=== PATIENT | male | born 1950 ===

== ENCOUNTER 2017-10-01 17:19 | Emergency (ER) | payer OTHER ==
[2017-10-01 17:25] VITALS: O2SAT 95
[2017-10-01] MEDS ORDERED: Epinephrine /Lidocaine HCL 1:100,000/2% 30 ml INJ STA (18:16)
[2017-10-01] MEDS ORDERED: Tetanus/Diphtheria Toxoids 0.5 ml Syringe IM ONE ×2 (18:18→18:30)
--- NOTE | 2017-10-01 18:45 | C.PDOC ---
History Of Present Illness 67 y/o male presents to the ED for evaluation of a laceration to occiput, sustained today. Patient states he slipped and fell while working. He denies LOC. Otherwise patient denies any nausea, vomiting, dizziness, visual changes, slurred speech, chest pain, SOB, or other complaints. - HPI Time Seen by Provider: 10/01/17 18:13 Chief Complaint (Nursing): Trauma History Per: Patient History/Exam Limitations: no limitations Injury Occurred (Timing): Just Before Arrival Past Medical History Reviewed: Historical Data, Nursing Documentation, Vital Signs Vital Signs: Last Vital Signs Temp 99.1 F 10/01/17 17:21 Pulse 104 H 10/01/17 17:21 Resp 18 10/01/17 17:21 BP 187/101 H 10/01/17 17:21 Pulse Ox 95 10/01/17 18:54 - Medical History PMH: HTN Family History: States: No Known Family Hx - Social History Hx Alcohol Use: No Hx Substance Use: No - Immunization History Hx Tetanus Toxoid Vaccination: No Hx Influenza Vaccination: No Hx Pneumococcal Vaccination: No Review Of Systems Eyes: Negative for: Vision Change Cardiovascular: Negative for: Chest Pain Respiratory: Negative for: Shortness of Breath Gastrointestinal: Negative for: Nausea, Vomiting, Abdominal Pain Skin: Positive for: Lesions (to head) Neurological: Negative for: Weakness, Numbness, Incoordination, Change in Speech , Confusion, Altered Mental Status, Dizziness Physical Exam - Physical Exam Appears: Non-toxic, No Acute Distress Skin: Warm, Dry Head: Normacephalic, Laceration (5 cm inaggregate stellate wound to the occiput ) Eye(s): bilateral: Normal Inspection, PERRL, EOMI Ear(s): Bilateral: Normal Oral Mucosa: Moist Neck: Normal ROM, No Midline Cervical Tenderness, No Paracervical Tenderness, Supple Chest: Symmetrical Cardiovascular: Rhythm Regular Respiratory: Normal Breath Sounds, No Rales, No Rhonchi, No Wheezing Gastrointestinal/Abdominal: Soft, No Tenderness Extremity: Bilateral: Atraumatic, Normal Color And Temperature, Normal ROM Neurological/Psych: Oriented x3, Normal Speech, Normal Cranial Nerves, Normal Motor, Normal Sensation, Other (No focal deficits) ED Course And Treatment O2 Sat by Pulse Oximetry: 95 (RA) Pulse Ox Interpretation: Normal Laceration - Laceration Repair Head laceration Wound Length (In cm): 5 Description Of Wound: Stellate Wound Cleansed With: Sterile Saline Anesthesia: Lidocaine 1%, With Epi Wound Examination: Irrigated With Saline Wound Closure: Weston (x8) Wound Complexity: Simple Medical Decision Making Medical Decision Making: Plan: * CT Head * Tdap booster Impression: slip and fall with stellate occipital lac now cleaned and stapled low susp of brain injury- CT head pending Disposition Doctor Will See Patient In The: Office Counseled Patient/Family Regarding: Studies Performed, Diagnosis - Disposition Referrals: [facility] [Outside] [facility] [Outside] [facility] [Outside] Disposition: HOME/ ROUTINE Disposition Time: 18:46 Condition: GOOD Additional Instructions: Bolsa de hielo 1/2 hora por hora, nada caliente Ibuprofeno 400-600 mg cada 6 horas gokul necessario Limpia con jabon y agua diario Inguento de Bacitracin' diario. Regressa para sacar las engrappas en 7 lynne (la proxima Miercoles) Instructions: Laceration Repair With Weston (DC) Forms: [facility] (Lithuanian) Print Language: AMERICAN - Clinical Impression Clinical Impression: Scalp laceration - Scribe Statement The provider has reviewed the documentation as recorded by the Jermaineibdeanna Mcmullen Provider Attestation: All medical record entries made by the Scribe were at my direction and personally dictated by me. I have reviewed the chart and agree that the record accurately reflects my personal performance of the history, physical exam, medical decision making, and the department course for this patient. I have also personally directed, reviewed, and agree with the discharge instructions and disposition.
[2017-10-01 20:03] VITALS: BP 170/100; PULSE 94; RESP 16; TEMP 98.9
--- NOTE | 2017-10-02 07:11 | CT ---
Date of service: 10/01/2017 PROCEDURE: CT HEAD WITHOUT CONTRAST. HISTORY: Occipital laceration. Fall. COMPARISON: None available. TECHNIQUE: Axial computed tomography images were obtained through the head/brain without intravenous contrast. Radiation dose: Total exam DLP = 872 mGy-cm. This CT exam was performed using one or more of the following dose reduction techniques: Automated exposure control, adjustment of the mA and/or kV according to patient size, and/or use of iterative reconstruction technique. FINDINGS: HEMORRHAGE: No intracranial hemorrhage. BRAIN: No mass effect or edema. No atrophy or chronic microvascular ischemic changes. VENTRICLES: Unremarkable. No hydrocephalus. CALVARIUM: Unremarkable. PARANASAL SINUSES: Unremarkable as visualized. No significant inflammatory changes. MASTOID AIR CELLS: Unremarkable as visualized. No inflammatory changes. OTHER FINDINGS: Soft tissue swelling in the posterior skull vertex with skin smiley noted. IMPRESSION: Soft tissue swelling in the posterior skull vertex with skin smiley noted. If symptoms persists, consider correlation with MRI. These findings were preliminarily reported at 7:50 p.m. on 10/01/[address] Kim Giron from [facility].
== END 2017-10-01 20:01 | disposition home or self-care (01) ==
LOC: C.ER 17:19
DX: S01.01XA Laceration without foreign body of scalp, initial encounter (principal); W01.0XXA Fall on same level from slipping, tripping and stumbling without subsequent striking against object, initial encounter; Y92.89 Other specified places as the place of occurrence of the external cause

== ENCOUNTER 2017-10-08 18:58 | Emergency (ER) | payer OTHER ==
[2017-10-08 19:06] VITALS: BP 163/67; PULSE 90; RESP 18; TEMP 98.8; O2SAT 97
[2017-10-08] MEDS ORDERED: Bacitracin 500 Units/gm Oint Foilpak UD TOP ONE (19:24)
--- NOTE | 2017-10-08 19:25 | C.PDOC ---
History Of Present Illness 67 y/o male presents to the ED for staple removal. The patient denies any headache, dizziness, swelling or pain to the area. [place] were placed one week ago. The patient offers no complaints . Time Seen by Provider: 10/08/17 19:13 Chief Complaint (Nursing): Suture/Staple Removal History Per: Patient History/Exam Limitations: no limitations Location Of Injury: Right: Head, Left: Head Recent travel outside of the [place]: No Past Medical History Reviewed: Historical Data, Nursing Documentation, Vital Signs Vital Signs: Last Vital Signs Temp 98.8 F 10/08/17 19:00 Pulse 90 10/08/17 19:00 Resp 18 10/08/17 19:00 BP 163/67 H 10/08/17 19:00 Pulse Ox 97 10/08/17 19:54 - Medical History PMH: HTN Other PMH: Vitiligo Other Surgeries: Spinal surgery Family History: States: Unknown Family Hx - Social History Hx Alcohol Use: No Hx Substance Use: No - Immunization History Hx Tetanus Toxoid Vaccination: No Hx Influenza Vaccination: No Hx Pneumococcal Vaccination: No Review Of Systems Except As Marked, All Systems Reviewed And Found Negative. Constitutional: Negative for: Fever Skin: Negative for: Bruising Neurological: Negative for: Weakness, Numbness Physical Exam - Physical Exam Appears: Well, Non-toxic, No Acute Distress Skin: Warm, Dry Head: Normacephalic, No Tenderness, Laceration (4 cm healed wound with smiley intact, no surrounding erythema or discharge. ) Eye(s): bilateral: Normal Inspection, EOMI Oral Mucosa: Moist Chest: Symmetrical Respiratory: No Accessory Muscle Use Extremity: Normal ROM Extremity: Bilateral: Normal Color And Temperature, Normal ROM Neurological/Psych: Oriented x3, Normal Speech ED Course And Treatment O2 Sat by Pulse Oximetry: 97 (RA) Pulse Ox Interpretation: Normal Progress Note: Wound appears properly healed. No eythema or discharge noted around wound. (8) [place] were removed and wound care was discussed with patient. Disposition - Disposition Disposition: HOME/ ROUTINE Disposition Time: 19:24 Condition: STABLE Additional Instructions: Vaya a crenshaw mdico o la clnica en 2-5 foreman sin falta, para mas evaluacin. Volver a la sunny de emergencia en cualquier momento si los sntomas persisten o empeoran. Instructions: Staple Removal Forms: [facility] (Afghan) Print Language: URDU - Clinical Impression Clinical Impression: Removal of staple - PA / TILE ROOFER / Resident Statement MD/DO has reviewed & agrees with the documentation as recorded. - Scribe Statement The provider has reviewed the documentation as recorded by the Scribe (Anjelica Garrison) All medical record entries made by the Scribe were at my direction and personally dictated by me. I have reviewed the chart and agree that the record accurately reflects my personal performance of the history, physical exam, medical decision making, and the department course for this patient. I have also personally directed, reviewed, and agree with the discharge instructions and disposition.
[2017-10-08] MEDS ORDERED: Bacitracin 500 Units/gm Oint Foilpak UD ONE (19:29)
== END 2017-10-08 19:52 | disposition home or self-care (01) ==
LOC: C.ER 18:58
DX: Z48.02 Encounter for removal of sutures (principal); I10 Essential (primary) hypertension